=== PATIENT | female | born 1950 | race Caucasian/White ===

== ENCOUNTER → 2016-11-24 | Outpatient (CLI) | payer OTHER ==
[~2016-11-24] MED LIST: ADVI200C3 PO; ALBU0.08 NEB; ALL220TA PO; ANAS1TAB PO; AUGM875T3 PO; BENZ100 PO; CETI5TAB2 PO; DORZ2SOL EACH EYE; FISH1000 PO; IBUP200C PO; LOPE2 PO; LOTR15T TOPICAL; NAPR500 PO; OMEP20TA PO; OMPR20CCR PO; PRED20 PO; TAB-TAB PO; TRAV0.00 EACH EYE; VENTAER INH; ZITH500T PO; [UNRECOGNIZED DRUG - CODE]
[2016-11-24 10:49] LABS: AUTOMATED NEUTROPHIL # 4.4 TH/MM3 (1.8-7.7); BASOPHIL # 0.1 TH/MM3 (0-0.2); BASOPHIL % 0.7 % (0.0-2.0); EOSINOPHIL # 0.3 TH/MM3 (0-0.4); EOSINOPHIL % 4.2 % (0.0-4.0); HEMATOCRIT 39.9 % (35.0-46.0); HEMO FLAGS DIFF FINAL; LYMPH % 28.8 % (9.0-44.0); LYMPHOCYTE # 2.1 TH/MM3 (1.0-4.8); MEAN CELL VOLUME 88.5 FL (80.0-100.0); MEAN CORPUSCULAR HEMOGLOBIN 29.6 PG (27.0-34.0); MEAN CORPUSCULAR HGB CONC 33.5 % (32.0-36.0); NEUT % 61.3 % (16.0-70.0); PLATELET COUNT 193 TH/MM3 (150-450); RED BLOOD COUNT 4.51 MIL/MM3 (4.00-5.30); RED CELL DISTRIBUTION WIDTH 13.5 % (11.6-17.2); WHITE BLOOD COUNT 7.2 TH/MM3 (4.0-11.0)
[2016-11-24 11:21] LABS: ALKALINE PHOSPHATASE 103 U/L (45-117); ALT (GPT) 43 U/L (10-53); FREE T4 1.01 NG/DL (0.76-1.46); TOTAL BILIRUBIN ADULT 0.5 MG/DL (0.2-1.0)
[2016-11-24 11:22] LABS: ANION GAP 8 MEQ/L (5-15); BICARBONATE 26.1 MEQ/L (21.0-32.0); BLOOD UREA NITROGEN 20 MG/DL (7-18); CHLORIDE 106 MEQ/L (98-107); GLOMERULAR FILTRATION RATE 66 ML/MIN (>89); GLUCOSE,FASTING 98 MG/DL (74-99); LDL CHOLESTEROL 63 MG/DL (0-99); SODIUM (NA) 140 MEQ/L (136-145)
[2016-11-24 11:22] LABS: BLOOD, URINE SMALL (NEG); COMMENT (UR) CULT NOT INDICATED; CULTURE IF INDICATED CULT NOT INDICATED; GLUCOSE,URINE NEG (NEG); KETONE, URINE NEG (NEG); MUCUS URINE FEW /lpf (OCC); NITRITE,URINE NEG (NEG); SQUAMOUS EPITHELIAL CELL URINE 1 /hpf (0-5); URINE COLOR YELLOW (YELLW/STRAW)
[2016-11-24 11:23] LABS: AST (GOT) 28 U/L (15-37); POTASSIUM 4.1 MEQ/L (3.5-5.1)
== END ==
LOC: CLAB 11-17 13:15
PROVIDERS: ATTEND Family Medicine
DX: Z00.00 Encounter for general adult medical examination without abnormal findings (principal); Z12.11 Encounter for screening for malignant neoplasm of colon
CPT/HCPCS: 36415; 80053; 80061; 81001; 82272; 84439; 84443; 84480; 85025

== ENCOUNTER → 2017-01-09 | Outpatient (CLI) | payer OTHER ==
[2017-01-09 10:15] LABS: BACTERIA, URINE RARE /hpf; BLOOD, URINE NEG (NEG); GLUCOSE,URINE NEG (NEG); KETONE, URINE NEG (NEG); MUCUS URINE FEW /lpf (OCC); NITRITE,URINE NEG (NEG); SQUAMOUS EPITHELIAL CELL URINE 3 /hpf (0-5); URINE COLOR DARK-YELLOW (YELLW/STRAW)
== END ==
LOC: CLAB 09:42
DX: R82.90 Unspecified abnormal findings in urine (principal)
CPT/HCPCS: 81001

== ENCOUNTER 2017-10-23 22:26 | Inpatient (IN) | payer OTHER, MEDICARE ==
[~2017-10-23] VITALS: Ht 154.9 cm; Wt 101.7 kg
[2017-10-23] MEDS: PIPERACIL-TAZO 4.5 GM PREMIX 100 ML IV SCH (20:00)
[2017-10-23] MEDS: SODIUM CHLORIDE 0.9% FLUSH 10 ML FLUSH IV FLUSH SCH (21:00)
[2017-10-23] MEDS: LATANOPROST 0.005% OPHT SOLN 2.5 ML BTL EACH EYE SCH (21:00)
[~2017-10-23 22:26] MED LIST changes: -ADVI200C3 PO; -ALBU0.08 NEB; -ALL220TA PO; -BENZ100 PO; +CHERSYP2 PO; -FISH1000 PO; -LOPE2 PO; -OMEP20TA PO; +OMEP20TA93 PO; -OMPR20CCR PO; -TAB-TAB PO; +VANCOMYCIN INJ 1,000 MG in SODIUM CHLOR 0.9% 250 ML INJ 250 ML IV ONE; +Vancomycin Consult Pharmacy 1 EA OTHER SCH; -ZITH500T PO
[2017-10-23 22:50] VITALS: O2SAT 96
[2017-10-23] MEDS: HEPARIN SODIUM - SQ 10,000 UNITS/ML VIAL SQ SCH (23:41)
[2017-10-23] MEDS: SODIUM CHLORIDE 0.9% FLUSH 10 ML FLUSH IV FLUSH PRN (23:41)
[2017-10-24] VITALS (8 sets, daily range): BP systolic 109–155; BP diastolic 70–78; PULSE 77–94; RESP 16–20; TEMP 96.2–97.8; O2SAT 93–97
[2017-10-24] MEDS ORDERED: SODIUM CHLORIDE IV SCH ×2
[2017-10-24] MEDS ORDERED: VANCOMYCIN IV SCH ×2
[2017-10-24] MEDS: ALBUTEROL SULFATE 90 MCG/ACT HFA 8 GM INHALER INH PRN ×2 (00:11→10:42)
[2017-10-24] MEDS: guaiFENesin/CODEINE SYRUP 200 MG/20 MG/10 ML CUP PO PRN ×4 (00:14→18:13)
[2017-10-24] MEDS: PIPERACIL-TAZO 4.5 GM PREMIX 100 ML IV SCH ×4 (02:34→20:53)
[2017-10-24] MEDS: SODIUM CHLORIDE 0.9% FLUSH 10 ML FLUSH IV FLUSH PRN (02:35)
[2017-10-24 05:48] LABS: BICARBONATE 28.8 MEQ/L (21.0-32.0)
[2017-10-24 05:51] LABS: CREATININE 0.62 MG/DL (0.50-1.00)
[2017-10-24] MEDS: DORZOLAMIDE 2% OPTH SOLN 200 DROP/10 ML BTLO EACH EYE SCH ×3 (09:00→17:54)
[2017-10-24] MEDS: ANASTROZOLE 1 MG TAB PO SCH (09:00)
--- NOTE | 2017-10-24 10:10 | HHI.HP ---
[facility] Primary [facility] Physician Ilana Bashir MD Admission Diagnosis Diagnoses: Chief Complaint: Shortness of breath, coughing Travel History International Travel<30 Days: No Contact w/Intl Traveler <30 Da: No Traveled to Known Affected Are: No History of Present Illness 67-year-old white female being admitted for pneumonia failing outpatient antibiotics. Patient was in her usual state of health until late September when she developed an ear infection and was started on amoxicillin. 2 days later she developed a cough and was started on cefdinir ear with no improvement in her symptoms. This patient said ago to the emergency room Andi. She did report having a fever measured at home of 103. She says her cough is substantially worse at night and almost on one occasion made her vomit/gag. Patient says she had some transient diarrhea that self resolved. She does report of decreased appetite. Since coming to the emergency room she says she feels much better. The cough suppressant of Robitussin and codeine she says has significantly helped. She denies having any chest pain outside her coughing spells. Review of Systems Except as stated in HPI: all other systems reviewed are Neg Past Family Social History Past Medical History breast CA Past Surgical History lumpectomy Allergies: Coded Allergies: No Known Allergies (Unverified Allergy, Unknown, 10/23/17) Family History HTN Social History passive smoke exposure. lives w/ her mother. Physical Exam Vital Signs Vital Signs Date Time Temp Pulse Resp B/P (MAP) Pulse Ox O2 Delivery O2 Flow Rate FiO2 10/24/17 08:21 93 21 10/24/17 07:30 97.0 83 20 150/70 (96) 93 10/24/17 04:20 96.2 79 16 142/77 (98) 93 10/24/17 00:00 96.3 77 18 155/78 (103) 95 10/23/17 22:50 96 21 Physical Exam VS: afebrile GENERAL: Middle-aged white female, obese, no acute distress until she has coughing spells SKIN: Warm and dry. EYES: No scleral icterus. No injection or drainage. ENT: No nasal bleeding or discharge. Mucous membranes pink and moist. CARDIOVASCULAR: Regular rate and rhythm. no murmurs RESPIRATORY: No accessory muscle use. Unlabored breathing, has bibasilar crackles and rhonchi GASTROINTESTINAL: Abdomen soft, non-tender, nondistended. Extremities: No clubbing, cyanosis. MUSCULOSKELETAL: adequate muscle bulk and tone for age and habitus NEUROLOGICAL: Awake and alert. No obvious cranial nerve deficits. No facial droop nor slurred speech noted. PSYCHIATRIC: Appropriate mood and affect; insight and judgment normal. Laboratory Laboratory Tests Test 10/24/17 04:55 Blood Urea Nitrogen 14 Creatinine 0.62 Random Glucose 164 Calcium Level 9.0 Sodium Level 141 Potassium Level 4.5 Chloride Level 104 Carbon Dioxide Level 28.8 Anion Gap 8 Estimat Glomerular Filtration Rate 96 Date/Time Source Procedure Growth Status 10/24/17 00:10 Nasal Aspirate Influenza Types A,B Antigen (ELENA) Pending Received 10/24/17 00:15 Urine Clean Catch Legionella Antigen Pending Received 10/24/17 00:15 Urine Clean Catch Streptococcus pneumoniae Antigen (M Pending Received Result Diagram: 10/24/17 0455 Caprini VTE Risk Assessment Caprini VTE Risk Assessment: Mod/High Risk (score >= 2) Caprini Risk Assessment Model Point Value = 1 Point Value = 2 Point Value = 3 Point Value = 5 Age 41-60 Minor surgery BMI > 25 kg/m2 Swollen legs Varicose veins or History of unexplained or recurrent spontaneous Oral contraceptives or hormone replacement Sepsis (< 1 month) Serious lung disease, including pneumonia (< 1 month) Abnormal pulmonary function Acute myocardial infarction Congestive heart failure (< 1 month) History of inflammatory bowel disease Medical patient at bed rest Age 61-74 Arthroscopic surgery Major open surgery (> 45 min) Laparoscopic surgery (> 45 min) Malignancy Confined to bed (> 72 hours) Immobilizing plaster cast Central venous access Age >= 75 History of VTE Family history of VTE Factor V Leiden Prothrombin [id number] Lupus anticoagulant Anticardiolipin antibodies Elevated serum homocysteine Heparin-induced thrombocytopenia Other congenital or acquired thrombophilia Stroke (< 1 month) Elective arthroplasty Hip, pelvis, or leg fracture Acute spinal cord injury (< 1 month) Prophylaxis Regimen Total Risk Factor Score Risk Level Prophylaxis Regimen 0-1 Low Early ambulation 2 Moderate Order ONE of the following: *Sequential Compression Device (SCD) *Heparin 5000 units SQ BID 3-4 Higher Order ONE of the following medications: *Heparin 5000 units SQ TID *Enoxaparin/Lovenox 40 mg SQ daily (WT < 150 kg, CrCl > 30 mL/min) *Enoxaparin/Lovenox 30 mg SQ daily (WT < 150 kg, CrCl > 10-29 mL/min) *Enoxaparin/Lovenox 30 mg SQ BID (WT < 150 kg, CrCl > 30 mL/min) AND/OR *Sequential Compression Device (SCD) 5 or more Highest Order ONE of the following medications: *Heparin 5000 units SQ TID (Preferred with Epidurals) *Enoxaparin/Lovenox 40 mg SQ daily (WT < 150 kg, CrCl > 30 mL/min) *Enoxaparin/Lovenox 30 mg SQ daily (WT < 150 kg, CrCl > 10-29 mL/min) *Enoxaparin/Lovenox 30 mg SQ BID (WT < 150 kg, CrCl > 30 mL/min) AND *Sequential Compression Device (SCD) Assessment and Plan Assessment and Plan Left lower lobe pneumonia - I independently reviewed the chest x-ray and see this infiltrate. Patient is showing marked improvement w/ Vancomycin and Zosyn. Continue with IV abx. - will swap Zosyn to Levaquin and doxycycline upon discharge. Continue home meds for gluacoma and breast cancer. SCDs Physician Certification 2 Midnight Certification Type: Admission for Inpatient Services Order for Inpatient Services The services are ordered in accordance with Medicare regulations or non- Medicare payer requirements, as applicable. In the case of services not specified as inpatient-only, they are appropriately provided as inpatient services in accordance with the 2-midnight benchmark. Estimated LOS (days): 2 2 days is the estimated time the patient will need to remain in the hospital, assuming treatment plan goals are met and no additional complications. Post-Hospital Plan: Home Jos Devlin MD Oct 24, 2017 10:10
[2017-10-24] MEDS ORDERED: PILL SPLITTER OTHER PRN (10:15)
[2017-10-24] MEDS: HEPARIN SODIUM - SQ 10,000 UNITS/ML VIAL SQ SCH ×2 (10:42→20:53)
[2017-10-24] MEDS: PANTOPRAZOLE SOD 20 MG DELAYED RELEASE TAB PO SCH (10:42)
[2017-10-24] MEDS: SODIUM CHLORIDE 0.9% FLUSH 10 ML FLUSH IV FLUSH SCH ×2 (10:42→20:54)
[2017-10-24] MEDS: VANCOMYCIN INJ 1,250 MG in SODIUM CHLOR 0.9% 250 ML INJ 250 ML IV SCH (14:15)
[2017-10-24] MEDS: BETAMETHASONE/CLOTRIMAZOLE CREAM 15 GM TOPICAL SCH (20:54)
[2017-10-24] MEDS: LATANOPROST 0.005% OPHT SOLN 2.5 ML BTL EACH EYE SCH (21:33)
[2017-10-25] VITALS: BP 110/75; PULSE 78; RESP 16; TEMP 97.7; O2SAT 99
[2017-10-25] MEDS: VANCOMYCIN INJ 1,250 MG in SODIUM CHLOR 0.9% 250 ML INJ 250 ML IV SCH ×2
[2017-10-25] MEDS: PIPERACIL-TAZO 4.5 GM PREMIX 100 ML IV SCH ×2 (01:08→09:27)
[2017-10-25 08:00] VITALS: BP 135/85; PULSE 77; RESP 18; TEMP 97; O2SAT 96
[2017-10-25] MEDS ORDERED: CETIRIZINE HCL 10 MG TAB PO SCH (09:00)
[2017-10-25] MEDS: HEPARIN SODIUM - SQ 10,000 UNITS/ML VIAL SQ SCH (09:00)
[2017-10-25 09:06] LABS: CREATININE 0.9 MG/DL (0.50-1.00)
[2017-10-25] MEDS: LATANOPROST 0.005% OPHT SOLN 2.5 ML BTL EACH EYE SCH (09:26)
[2017-10-25] MEDS: guaiFENesin/CODEINE SYRUP 200 MG/20 MG/10 ML CUP PO PRN (09:26)
[2017-10-25] MEDS: ANASTROZOLE 1 MG TAB PO SCH (09:27)
[2017-10-25] MEDS: PANTOPRAZOLE SOD 20 MG DELAYED RELEASE TAB PO SCH (09:27)
[2017-10-25] MEDS: BETAMETHASONE/CLOTRIMAZOLE CREAM 15 GM TOPICAL SCH (09:28)
[2017-10-25] MEDS: DORZOLAMIDE 2% OPTH SOLN 200 DROP/10 ML BTLO EACH EYE SCH (09:38)
[2017-10-25] MEDS: SODIUM CHLORIDE 0.9% FLUSH 10 ML FLUSH IV FLUSH SCH (09:38)
[2017-10-25] MEDS ORDERED: DOXY100C PO (10:06)
[2017-10-25] MEDS ORDERED: LEVO750T3 PO (10:06)
--- NOTE | 2017-10-25 10:07 | HHI.DCPOC ---
Discharge Care Plan Diagnosis: (1) Pneumonia Goals to Promote Your Health * To prevent worsening of your condition and complications * To maintain your health at the optimal level Directions to Meet Your Goals Take your medications as prescribed Follow your dietary instruction Follow activity as directed Keep your appointments as scheduled Take your immunizations and boosters as scheduled If your symptoms worsen call your PCP, if no PCP go to Urgent Care Center or Emergency Room Smoking is Dangerous to Your Health. Avoid second hand smoke Call the 24-hour hour crisis hotline for domestic abuse at Jos Devlin MD Oct 25, 2017 10:07
[2017-10-25] MEDS ORDERED: PROM6.256 PO (10:11)
--- NOTE | 2017-10-25 10:26 | HHI.PR ---
Subjective Remarks Nursing denies any deterioration since last night. Patient reports tolerating by mouth intake well and overall feeling better. Since still has a cough but says it is improved since admission. Objective Vital Signs Date Time Temp Pulse Resp B/P (MAP) Pulse Ox O2 Delivery O2 Flow Rate FiO2 10/25/17 08:00 97.0 77 18 135/85 (102) 96 10/25/17 00:00 97.7 78 16 110/75 (87) 99 10/24/17 20:00 97.8 81 17 109/72 (84) 94 10/24/17 19:55 95 21 10/24/17 15:45 97.4 80 20 126/78 (94) 97 10/24/17 11:30 97.3 94 20 141/73 (95) 96 I/O 10/24/17 10/24/17 10/24/17 10/25/17 10/25/17 10/25/17 07:00 15:00 23:00 07:00 15:00 23:00 Intake Total 1075 ml 1036 ml 900 ml Output Total 500 ml Balance 1075 ml 536 ml 900 ml Intake Oral 460 ml 936 ml IV Total 615 ml 100 ml 900 ml Output Urine Total 500 ml # Voids 1 # Bowel Movements 0 0 Result Diagram: 10/25/17 0525 Objective Remarks Very mild crackles in bilateral bases, unlabored breathing No cyanosis No acute distress A/P Assessment and Plan Patient significantly improved since admission. afebrile. We'll discharge patient with oral antibiotics of Levaquin and doxycycline. We'll discharge home cough suppressant. Jos Devlin MD Oct 25, 2017 10:26
[2017-10-25] MEDS ORDERED: PHARMACY ORDERED LAB ONE (23:45)
== END 2017-10-25 12:17 | disposition home or self-care (01) | DRG 194 ==
LOC: PHEDDLT 22:26 → PH3B 22:27
PROVIDERS: ADMIT Hospitalist; ATTEND Hospitalist
DX: J18.9 Pneumonia, unspecified organism (principal); Z68.41 Body mass index [BMI] 40.0-44.9, adult; R63.0 Anorexia; Z77.22 Contact with and (suspected) exposure to environmental tobacco smoke (acute) (chronic); E66.9 Obesity, unspecified; H40.9 Unspecified glaucoma; Z85.3 Personal history of malignant neoplasm of breast
CPT/HCPCS: 71046; 80048; 80053; 82565; 83605; 85025; 87040; 87449; 87804; 94664; J0456; J0696; J1100; J1644; J2543; J3370; J7040; J7050

== ENCOUNTER → 2017-10-31 | Outpatient (CLI) | payer OTHER ==
[~2017-10-31] MED LIST changes: -AUGM875T3 PO; -CHERSYP2 PO; +DOXY100C PO; -IBUP200C PO; +LEVO750T3 PO; +PROM6.256 PO; -VANCOMYCIN INJ 1,000 MG in SODIUM CHLOR 0.9% 250 ML INJ 250 ML IV ONE; -Vancomycin Consult Pharmacy 1 EA OTHER SCH
[2017-10-31 09:58] LABS: AUTOMATED NEUTROPHIL # 4.7 TH/MM3 (1.8-7.7); BASOPHIL # 0.1 TH/MM3 (0-0.2); EOSINOPHIL # 0.2 TH/MM3 (0-0.4); HEMATOCRIT 40.8 % (35.0-46.0); HEMOGLOBIN 13.4 GM/DL (11.6-15.3); LYMPH % 22.3 % (9.0-44.0); LYMPHOCYTE # 1.5 TH/MM3 (1.0-4.8); MEAN CELL VOLUME 88.6 FL (80.0-100.0); MEAN CORPUSCULAR HGB CONC 32.8 % (32.0-36.0); MONOCYTE # 0.4 TH/MM3 (0-0.9); NEUT % 67.7 % (16.0-70.0); PLATELET COUNT 322 TH/MM3 (150-450); WHITE BLOOD COUNT 6.9 TH/MM3 (4.0-11.0)
[2017-10-31 10:40] LABS: ALBUMIN 2.8 GM/DL (3.4-5.0); BICARBONATE 30.9 MEQ/L (21.0-32.0); BLOOD UREA NITROGEN 21 MG/DL (7-18); CHLORIDE 106 MEQ/L (98-107); CHOLESTEROL 116 MG/DL (120-200); CREATININE 0.99 MG/DL (0.50-1.00); GLOMERULAR FILTRATION RATE 56 ML/MIN (>89); GLUCOSE,FASTING 92 MG/DL (74-99); SODIUM (NA) 141 MEQ/L (136-145)
[2017-10-31 10:41] LABS: ALKALINE PHOSPHATASE 108 U/L (45-117); ALT (GPT) 41 U/L (10-53); CHOLESTEROL/ HDL RATIO 2.17 RATIO; HDL CHOLESTEROL 53.4 MG/DL (40.0-60.0); LDL CHOLESTEROL 43 MG/DL (0-99); TOTAL BILIRUBIN ADULT 0.7 MG/DL (0.2-1.0); TOTAL PROTEIN 7.5 GM/DL (6.4-8.2); TRIGLYCERIDES 96 MG/DL (42-150)
[2017-10-31 10:42] LABS: AST (GOT) 39 U/L (15-37)
== END ==
LOC: CLAB 09:13
PROVIDERS: ATTEND Family Medicine
DX: M18.0 Bilateral primary osteoarthritis of first carpometacarpal joints (principal); M19.041 Primary osteoarthritis, right hand; K21.9 Gastro-esophageal reflux disease without esophagitis; H40.9 Unspecified glaucoma; R19.7 Diarrhea, unspecified; J30.2 Other seasonal allergic rhinitis; Z85.3 Personal history of malignant neoplasm of breast; Z68.41 Body mass index [BMI] 40.0-44.9, adult; Z13.820 Encounter for screening for osteoporosis
CPT/HCPCS: 36415; 80053; 80061; 84439; 84443; 85025

== ENCOUNTER → 2018-01-31 | Outpatient (CLI) | payer OTHER ==
[~2018-01-31] VITALS: Ht 152.4 cm; Wt 89.6 kg
[~2018-01-31] MED LIST changes: +CHLORHEXIDINE GLUCONATE 2 % 1 PACK (2 CLOTHS) TOPICAL PRN; +DEXTROSE 5%-LACTATED RING INJ 1,000 ML IV SCH; +HUMIBIDDM PO; +LACTATED RINGER'S 1000 ML IV PRN; +LOPE2CAP PO; +METOPROLOL TARTRATE 25 MG TAB PO PRN; +POVIDONE IODINE 5% (ANTISEPSIS KIT) 4 APPLICATIONS EACH NARE PRN; +PROPOFOL 200 MG/20 ML AMP IV ONE; +SODIUM CHLORID 0.9% 500 ML IV PRN; +TYLE325T PO; -[UNRECOGNIZED DRUG - CODE]
--- NOTE | 2018-01-31 09:57 | GIPROC ---
[facility] [address] [facility]. [facility], [address] EGD PROCEDURE REPORT EXAM DATE: 01/31/2018 PATIENT NAME: Cassie Augustin MR #: [id number] BIRTHDATE: 1950 ATTENDING: Karen Saenz MD ORDER #: [id number] DIRECTOR IMMUNOLOGY: Halima Hinkle and Ting Child STATUS: outpatient INDICATIONS: The patient is a 67 yr old female here for an EGD due to reflux, history of polyps PROCEDURE PERFORMED: EGD w/ biopsy EGD w/ snare technique MEDICATIONS: None and Per Anesthesia. TOPICAL ANESTHETIC: none CONSENT: The patient understands the risks and benefits of the procedure and understands that these risks include, but are not limited to: sedation, allergic reaction, infection, perforation and/or bleeding. Alternative means of evaluation and treatment include, among others: physical exam, x-rays, and/or surgical intervention. The patient elects to proceed with this endoscopic procedure. medical equipment was checked for proper function. Hand hygiene and appropriate measures for infection prevention was taken. After the risks, benefits and alternatives of the procedure were thoroughly explained, Informed consent was verified, confirmed and timeout was successfully executed by the treatment team. The patient was anesthetized with topical anesthesia and the Pentax [id number] endoscope was introduced through the mouth and advanced to the second portion of the duodenum. Retroflexed views revealed a hiatal hernia The gastroscope was then slowly withdrawn and removed. Gastritis antrum-biopsy esophagitis distal esophagus-biopsy multiple gastric polyps-cold snare polypectomy with removal usiong net of larger ones -most likely ppi effect. ADVERSE EVENTS: There were no complications. IMPRESSIONS: 1. Gastritis antrum-biopsy esophagitis distal esophagus-biopsy multiple gastric polyps-cold snare polypectomy with removal usiong net of larger ones -most likely ppi effect 2. Retroflexed views revealed a hiatal hernia RECOMMENDATIONS: 1. Await biopsy results. Biopsy results will not be ready for 7-10 days. If you don't hear from us in two weeks, call our office for biopsy results. 2. Anti-reflux regimen 3. Avoid NSAIDS PATIENT CONDITION: stable DISPOSITION: Home REPEAT EXAM: Return 3 years EGD Karen Saenz MD eSigned: Karen Saenz MD 01/31/2018 9:57 AM cc: PATIENT NAME: Cassie Augustin MR#: [id number]
[2018-01-31 10:50] VITALS: BP 102/64; PULSE 67; RESP 18; TEMP 98.6; O2SAT 98
--- NOTE | 2018-01-31 13:37 | EKG ---
Date Performed: 01/31/2018 Time Performed: 08:10:06 PTAGE: 67 years EKG: Sinus rhythm NORMAL ECG Since the PREVIOUS TRACING , no significant change noted PREVIOUS TRACIN04/04/2013 09.59 DOCTOR: Jonatan Tyson Interpretating Date/Time 01/31/2018 13:35:01
== END ==
LOC: HSDC 07:45
PROVIDERS: ATTEND Internal Medicine Gastroenterology
DX: K31.7 Polyp of stomach and duodenum (principal); K44.9 Diaphragmatic hernia without obstruction or gangrene; K29.50 Unspecified chronic gastritis without bleeding; K21.0 Gastro-esophageal reflux disease with esophagitis; Z87.19 Personal history of other diseases of the digestive system; Z01.810 Encounter for preprocedural cardiovascular examination
CPT/HCPCS: 88305; 88312; 93005